=== PATIENT | male | born 1990 | race Caucasian/White ===

== ENCOUNTER 2019-05-28 12:25 | Emergency (ER) | payer OTHER ==
[~2019-05-28] VITALS: Ht 175.3 cm; Wt 84.9 kg
[2019-05-28] MEDS ORDERED: LIDOCAINE 2% MDV 20 ML VIAL SC ONE (14:45)
[2019-05-28 15:14] VITALS: BP 129/67
== END 2019-05-28 15:16 | disposition home or self-care (01) ==
LOC: M ED 12:25
DX: S61.216A Laceration without foreign body of right little finger without damage to nail, initial encounter (principal); W26.8XXA Contact with other sharp object(s), not elsewhere classified, initial encounter; Y92.098 Other place in other non-institutional residence as the place of occurrence of the external cause; Z88.8 Allergy status to other drugs, medicaments and biological substances